=== PATIENT | female | born 1990 | race Caucasian/White ===

== ENCOUNTER 2024-03-03 10:08 | Outpatient (CLI) | payer BC, SELFPAY ==
--- NOTE | 2024-03-03 10:18 | NM_ITS ---
FINAL REPORT CLINICAL HISTORY: ABD PAIN 11:10AM 7.70 MCI TC CHOLETEC 2 MCG CCK MILD PAIN WITH CCK COMPARISON: None FINDINGS: Sequential anterior projection images of the abdomen were obtained after the intravenous injection of 7.70 mCi technetium 99m Choletec. There is normal uptake of radiotracer by the liver. The bile ducts and gallbladder are seen by 15 minutes. Bowel activity is noted by 35 minutes. After 1 hour, 2.0 ?g of CCK was injected intravenously for calculation of gallbladder ejection fraction. The gallbladder ejection fraction is 81 %, which is within normal limits. IMPRESSION: No evidence of cystic duct or bile duct obstruction. Normal gallbladder ejection fraction of 81 %. Reviewed, Interpreted and Dictated by Abelino Paniagua III, MD Transcribed by Paige Kraft Authenticated and [facility]
[2024-03-03] MEDS: ISOTOPE CHOLETECH;1 DOSE (UP TO 15 MCI) IV (12:57)
[2024-03-03] MEDS: SINCALIDE 2 MCG in 0.9 % SODIUM CHLORIDE 50 ML 100 MCG IV (12:57)
[2024-03-03] MEDS: SODIUM CHLORIDE 0.9% 10ML SYR (RAD ONLY) 10 ML IV (12:57)
== END 2024-03-03 23:59 | disposition home or self-care (01) ==
LOC: RAD 10:10
PROVIDERS: PCP Nurse Practitioner Family; Visit Provider Surgery
DX: R10.9 Unspecified abdominal pain (principal)
CPT/HCPCS: 78227; A9537; J2805